=== PATIENT | male | born 1945 | race Caucasian/White ===

== ENCOUNTER → 2021-02-15 | Outpatient (CLI) | payer MEDICARE, BC ==
--- NOTE | 2021-02-16 07:30 | US ---
EXAMINATION TYPE: US thyroid st tissue head/neck DATE OF EXAM: 02/15/2021 COMPARISON: NONE CLINICAL HISTORY: R49.0 HOARSNESS OF VOICE,R13.10 DYSPHAGIA. difficulty swallowing, hoarseness GLAND SIZE: Right Lobe: 3.6 x 1.2 x 1.8 cm Overall Parenchyma: heterogenous Left Lobe: 3.8 x 1.3 x 1.9 cm Overall Parenchyma: heterogeneous Isthmus Thickness: 0.2 cm NODULES RIGHT: # of nodules measured on right: 0 LEFT: # of nodules measured on left: 0 ISTHMUS: # of nodules measured in the isthmus: 0 Bilateral neck scanned, no evidence of lymphadenopathy. IMPRESSION: Nonspecific glandular heterogeneity. No distinct nodularity seen. 2017 ACR TI-RADS LEVEL: *Highest TI-RADS level nodule reported
== END | disposition home or self-care (01) ==
LOC: RADUSWWP 16:45
PROVIDERS: ATTEND Family Medicine
DX: E04.1 Nontoxic single thyroid nodule (principal); R13.10 Dysphagia, unspecified
CPT/HCPCS: 76536

== ENCOUNTER → 2021-08-24 | Outpatient (CLI) | payer MEDICARE, BC | END | disposition home or self-care (01) | LOC: LABPAT 09:43 | PROVIDERS: ATTEND Surgery Plastic and Reconstructive Surgery | DX: Z20.822 Contact with and (suspected) exposure to COVID-19 (principal) | CPT/HCPCS: U0003; C9803; U0005 ==

== ENCOUNTER 2021-08-28 16:37 | Emergency (ER) | payer MEDICARE, BC ==
[2021-08-28 17:18] VITALS: TEMP 97.7
--- NOTE | 2021-08-28 18:08 | ED ---
General Adult HPI - General Chief complaint: Recheck/Abnormal Lab/Rx Stated complaint: jaundice Time Seen by Provider: 08/28/21 17:58 Source: patient, RN notes reviewed Mode of arrival: ambulatory Limitations: no limitations - History of Present Illness Initial comments: This is a pleasant 76-year-old male who comes to the ER complaining of possible jaundice. He states the last 3-4 days she's had some generalized, mild abdominal discomfort which is generalized. He is also had diminished appetite. Patient was complaining of dark urine and then this morning both he and his thought that his skin appeared to be yellow. Patient is due to have a screening colonoscopy tomorrow and call the surgeon was sent to the ER for evaluation. Patient was switched from lovastatin 20 mg to 80 mg of atorvastatin in early July. Patient denying any myalgias. No headache, no fever or chills, no changes in vision or hearing, no sore throat or difficulty with speech, no neck pain, no chest pain or shortness of breath, no abdominal pain, no nausea or vomiting, no changes in urination or bowel movements, no numbness or tingling, no extremity pain, no skin rashes or lesions. - Related Data Home Medications Medication Instructions Recorded Confirmed Atorvastatin [Lipitor] 80 mg PO HS 08/24/21 08/28/21 Enalapril [Vasotec] 10 mg PO DAILY 08/24/21 08/28/21 Fluticasone Nasal [place] [Flonase 1 spray EA NOSTRIL DAILY 08/28/21 08/28/21 Nasal [place]] Multivit-Min/FA/Lycopen/Lutein 1 tab PO DAILY 08/28/21 08/28/21 [Centrum Silver Men Tablet] Allergies Allergy/AdvReac Type Severity Reaction Status Date / Time No Known Allergies Allergy Verified 08/28/21 21:25 Review of Systems ROS Statement: Those systems with pertinent positive or pertinent negative responses have been documented in the HPI. ROS Other: All systems not noted in ROS Statement are negative. General Exam - General Exam Comments Initial Comments: Healthy-appearing 76-year-old male in no distress. Patient does not appear to be ill or toxic. Vital signs are reviewed. Patient may have very mild jaundice. There is no evidence of scleral icterus. Limitations: no limitations General appearance: alert, in no apparent distress Head exam: Present: atraumatic, normocephalic, normal inspection Eye exam: Present: normal appearance, PERRL, EOMI. Absent: scleral icterus, conjunctival injection, periorbital swelling ENT exam: Present: normal exam, mucous membranes moist Neck exam: Present: normal inspection. Absent: tenderness, meningismus, lymphadenopathy Respiratory exam: Present: normal lung sounds bilaterally. Absent: respiratory distress, wheezes, rales, rhonchi, stridor Cardiovascular Exam: Present: regular rate, normal rhythm, normal heart sounds. Absent: systolic murmur, diastolic murmur, rubs, gallop, clicks GI/Abdominal exam: Present: soft, tenderness (Very mild abdominal tenderness across the central abdomen. No distention. Positive bowel sounds. No hepatosplenomegaly. No right upper quadrant tenderness.), normal bowel sounds. Absent: distended, guarding, rebound, rigid Extremities exam: Present: normal inspection, full ROM, normal capillary refill. Absent: tenderness, pedal edema, joint swelling, calf tenderness Back exam: Present: normal inspection Neurological exam: Present: alert, oriented X3, CN II-XII intact Psychiatric exam: Present: normal affect, normal mood Skin exam: Present: warm, dry, intact, normal color. Absent: rash Course Vital Signs 08/28/21 08/28/21 17:14 20:58 Temperature 97.7 F Pulse Rate 61 66 Respiratory 18 16 Rate Blood Pressure 135/81 137/72 O2 Sat by Pulse 97 95 Oximetry - Reevaluation(s) Reevaluation #1: 08/28/21 20:48 Medical record is reviewed Symptoms are essentially unchanged Patient is informed of results and questions answered Patient in no distress Reevaluation #2: 08/28/21 21:33 Medical record is reviewed Symptoms are improved here in the emergency department Patient is informed of results and questions answered Patient in no distress Patient name. Recheck of abdomen is benign. Medical Decision Making - Medical Decision Making Nonspecific and mild abdominal pain, possible mild jaundice, we'll order basic abdominal labs to include creatinine kinase. Reevaluation. The patient's abdominal pain and diminished appetite we will order a computed tomography scan. His workup does show elevation of the hepatocellular enzymes to include alkaline phosphatase with a bilirubin of 4.5. Gallbladder ultrasound was added after cholelithiasis was noted. However there was no duct dilatation noted on computed tomography scan. Patient's findings raises suspicion of possible drug related hepatitis. However patient also has gallstones which raises suspicion of recent common bile duct stone which has now passed. The case was discussed in detail with ED attending physician. Presentation, findings, treatment plan discussed in detail. Case was discussed with the on-call surgeon. He states that the patient can be seen in the office on . Supervising physician is Dr. Dela Cruz - Lab Data Result diagrams: 08/28/21 18:28 08/28/21 18:28 Lab Results 08/28/21 08/28/21 08/28/21 Range/Units 18:28 18:28 18:28 WBC 5.3 (3.8-10.6) k/uL RBC 4.44 (4.30-5.90) m/uL Hgb 15.1 (13.0-17.5) gm/dL Hct 44.9 (39.0-53.0) % MCV 101.3 H (80.0-100.0) fL MCH 34.0 (25.0-35.0) pg MCHC 33.6 (31.0-37.0) g/dL RDW 14.3 (11.5-15.5) % Plt Count 159 (150-450) k/uL MPV 8.3 Neutrophils % 68 % Lymphocytes % 15 % Monocytes % 4 % Eosinophils % 9 % Basophils % 1 % Neutrophils # 3.6 (1.3-7.7) k/uL Lymphocytes # 0.8 L (1.0-4.8) k/uL Monocytes # 0.2 (0-1.0) k/uL Eosinophils # 0.5 (0-0.7) k/uL Basophils # 0.1 (0-0.2) k/uL Macrocytosis Slight PT 11.1 (9.0-12.0) sec INR 1.0 (<1.2) APTT 25.6 (22.0-30.0) sec Sodium 138 (137-145) mmol/L Potassium 4.3 (3.5-5.1) mmol/L Chloride 101 (98-107) mmol/L Carbon Dioxide 24 (22-30) mmol/L Anion Gap 13 mmol/L BUN 12 (9-20) mg/dL Creatinine 0.85 (0.66-1.25) mg/dL Est GFR (CKD-EPI)AfAm >90 (>60 ml/min/1.73 sqM) Est GFR (CKD-EPI)NonAf 86 (>60 ml/min/1.73 sqM) Glucose 105 H (74-99) mg/dL Calcium 9.7 (8.4-10.2) mg/dL Total Bilirubin 4.5 H (0.2-1.3) mg/dL Conjugated Bilirubin 1.8 H (0.0-0.3) mg/dL Unconjugated Bilirubin 1.2 H (0.0-1.1) mg/dL Delta Bilirubin 1.5 H (0.0-0.2) mg/dL GGT 476 H (15-73) U/L AST 197 H (17-59) U/L ALT 284 H (4-49) U/L Alkaline Phosphatase 459 H (38-126) U/L Creatine Kinase 88 (55-170) U/L Total Protein 7.8 (6.3-8.2) g/dL Albumin 4.4 (3.5-5.0) g/dL Lipase 110 (23-300) U/L Urine Color Urine Appearance (Clear) Urine pH (5.0-8.0) Ur Specific [place] (1.001-1.035) Urine Protein (Negative) Urine Glucose (UA) (Negative) Urine Ketones (Negative) Urine Blood (Negative) Urine Nitrite (Negative) Urine Bilirubin (Negative) Urine Urobilinogen (<2.0) mg/dL Ur Leukocyte Esterase (Negative) 08/28/21 Range/Units 18:33 WBC (3.8-10.6) k/uL RBC (4.30-5.90) m/uL Hgb (13.0-17.5) gm/dL Hct (39.0-53.0) % MCV (80.0-100.0) fL MCH (25.0-35.0) pg MCHC (31.0-37.0) g/dL RDW (11.5-15.5) % Plt Count (150-450) k/uL MPV Neutrophils % % Lymphocytes % % Monocytes % % Eosinophils % % Basophils % % Neutrophils # (1.3-7.7) k/uL Lymphocytes # (1.0-4.8) k/uL Monocytes # (0-1.0) k/uL Eosinophils # (0-0.7) k/uL Basophils # (0-0.2) k/uL Macrocytosis PT (9.0-12.0) sec INR (<1.2) APTT (22.0-30.0) sec Sodium (137-145) mmol/L Potassium (3.5-5.1) mmol/L Chloride (98-107) mmol/L Carbon Dioxide (22-30) mmol/L Anion Gap mmol/L BUN (9-20) mg/dL Creatinine (0.66-1.25) mg/dL Est GFR (CKD-EPI)AfAm (>60 ml/min/1.73 sqM) Est GFR (CKD-EPI)NonAf (>60 ml/min/1.73 sqM) Glucose (74-99) mg/dL Calcium (8.4-10.2) mg/dL Total Bilirubin (0.2-1.3) mg/dL Conjugated Bilirubin (0.0-0.3) mg/dL Unconjugated Bilirubin (0.0-1.1) mg/dL Delta Bilirubin (0.0-0.2) mg/dL GGT (15-73) U/L AST (17-59) U/L ALT (4-49) U/L Alkaline Phosphatase (38-126) U/L Creatine Kinase (55-170) U/L Total Protein (6.3-8.2) g/dL Albumin (3.5-5.0) g/dL Lipase (23-300) U/L Urine Color Yellow Urine Appearance Clear (Clear) Urine pH 5.5 (5.0-8.0) Ur Specific [place] 1.009 (1.001-1.035) Urine Protein Negative (Negative) Urine Glucose (UA) Negative (Negative) Urine Ketones Negative (Negative) Urine Blood Negative (Negative) Urine Nitrite Negative (Negative) Urine Bilirubin 1+ H (Negative) Urine Urobilinogen 2.0 (<2.0) mg/dL Ur Leukocyte Esterase Negative (Negative) Disposition Clinical Impression: Hepatitis, Cholelithiasis Disposition: HOME SELF-CARE Condition: Good Instructions (If sedation given, give patient instructions): Jaundice (ED), Gallstones (ED) Additional Instructions: Follow-up with the general surgeon, Dr. Strauss, on as directed. Call at 8 AM in the morning tomorrow morning to set up a follow-up appointment. Make sure you tell the office personnel that I spoke to the surgeon here the ER. Clear liquid/bland diet until follow-up. The atorvastatin. Follow-up with your regular physician as directed. Return to the ER immediately if any symptoms worsen, new symptoms arise, or any other problems develop. Is patient prescribed a controlled substance at d/c from ED?: No Referrals: Ricky Strauss MD [STAFF PHYSICIAN] - 08/30/21 9:00 am Time of Disposition: 21:34
[2021-08-28 18:40] LABS: Basophils # (A) 0.1 k/uL (0-0.2); Basophils % (A) 1 %; Eosinophils # (A) 0.5 k/uL (0-0.7); Eosinophils % (A) 9 %; HCT 44.9 % (39.0-53.0); HGB 15.1 gm/dL (13.0-17.5); Lymphocytes # (A) 0.8 k/uL (1.0-4.8); Lymphocytes % (A) 15 %; MCHC 33.6 g/dL (31.0-37.0); MCV 101.3 fL (80.0-100.0); Macrocytosis Slight; Mean Platelet Volume 8.3; Monocytes # (A) 0.2 k/uL (0-1.0); Monocytes % (A) 4 %; Neutrophils # (A) 3.6 k/uL (1.3-7.7); Neutrophils % (A) 68 %; Platelet Count 159 k/uL (150-450); RBC 4.44 m/uL (4.30-5.90); RDW 14.3 % (11.5-15.5); WBC 5.3 k/uL (3.8-10.6)
[2021-08-28 18:46] LABS: ALT 284 U/L (4-49); AST 197 U/L (17-59); African American GFR (CKD) >90 (>60 ml/min/1.73 sqM); Albumin 4.4 g/dL (3.5-5.0); Alkaline Phosphatase 459 U/L (38-126); Anion Gap 13 mmol/L; Bilirubin, Conjugated 1.8 mg/dL (0.0-0.3); Bilirubin, Delta 1.5 mg/dL (0.0-0.2); Bilirubin,Unconjugated 1.2 mg/dL (0.0-1.1); Blood Urea Nitrogen 12 mg/dL (9-20); Calcium 9.7 mg/dL (8.4-10.2); Carbon Dioxide 24 mmol/L (22-30); Chloride 101 mmol/L (98-107); Creatine Kinase 88 U/L (55-170); GGT 476 U/L (15-73); Glucose 105 mg/dL (74-99); Lipase 110 U/L (23-300); Non-African American GFR(CKD) 86 (>60 ml/min/1.73 sqM); Sodium 138 mmol/L (137-145); Total Bilirubin 4.5 mg/dL (0.2-1.3); Total Protein 7.8 g/dL (6.3-8.2)
[2021-08-28 18:48] LABS: Partial Thromboplastin Time 25.6 sec (22.0-30.0); Prothrombin Time 11.1 sec (9.0-12.0)
[2021-08-28 18:49] LABS: Potassium 4.3 mmol/L (3.5-5.1)
[2021-08-28 19:18] LABS: Appearance,Urine Clear (Clear); Bilirubin,Urine 1+ (Negative); Blood,Urine Negative (Negative); Color,Urine Yellow; Glucose,Urine (UA) Negative (Negative); Ketones,Urine Negative (Negative); Leukocyte Esterase,Urine Negative (Negative); Nitrite,Urine Negative (Negative); PH, Urine 5.5 (5.0-8.0); Protein,Urine Negative (Negative); Specific Gravity,Urine 1.009 (1.001-1.035)
--- NOTE | 2021-08-28 19:35 | CT ---
EXAMINATION TYPE: CT abdomen pelvis w con CT DLP: 556.6 mGycm, Automated exposure control for dose reduction was used. DATE OF EXAM: 08/28/2021 7:23 PM COMPARISON: None.. CT abdomen pelvis most recent from . CLINICAL INDICATION:Male, 76 years old with history of Abdominal pain; Abdominal pain and jaundice. TECHNIQUE: Standard CT of the abdomen and pelvis following the administration of 100 cc of Isovue 3 00 IV contrast material. Coronal and sagittal reformats were performed. FINDINGS: LOWER CHEST: Unremarkable ABDOMEN LIVER: No evidence of cirrhosis. There is suggestion of a steatosis with low attenuation relative the spleen. GALLBLADDER AND BILE DUCTS: Layering increased densities within the lumen consistent with gallstones are present. No biliary ductal dilatation identified. PANCREAS: Lipomatous pseudohypertrophy changes. SPLEEN: Unremarkable. ADRENAL GLANDS: Unremarkable. KIDNEYS AND URETERS: No evidence of hydronephrosis or renal calculus. The ureters are unremarkable. Right 10 mm renal cyst. PELVIS BLADDER: Unremarkable REPRODUCTIVE: Unremarkable. ABDOMEN & PELVIS STOMACH AND BOWEL: No evidence of bowel obstruction. Few scattered clonic diverticula are present. PERITONEUM: No evidence of pneumoperitoneum or free fluid. VASCULATURE: Infrarenal aortic aneurysm measuring up to 38 mm with no thrombus. MUSCULOSKELETAL: No acute osseous abnormalities LYMPH NODES: No gross evidence for lymphadenopathy. SOFT TISSUE/ABDOMINAL WALL: Unremarkable IMPRESSION: 1. Infrarenal aortic saccular aneurysm measuring up to 38 mm at the aortic bifurcation. 2. Cholelithiasis. 3. Colonic diverticulosis. 4. Hepatic steatosis.
[2021-08-28 20:59] VITALS: RESP 16
--- NOTE | 2021-08-28 21:14 | US ---
EXAMINATION TYPE: US gallbladder DATE OF EXAM: 08/28/2021 COMPARISON: CT 08/28/21 CLINICAL HISTORY: Abdominal pain. Abdominal pain, elevated liver enzymes. Patient states noticing jau ndice EXAM MEASUREMENTS: Liver Length: 17.9 cm Gallbladder Wall: 0.40 cm CBD: 0.57 cm Right Kidney: 10.9 x 5.6 x 4.8 cm Pancreas: Obscured by bowel gas Liver: Diffusely heterogenous parenchyma Gallbladder: Thickened gallbladder wall with echogenic focus Evidence for sonographic Jacome's sign: No CBD: wnl Right Kidney: No hydronephrosis or masses seen IMPRESSION: 1. Hepatocellular disease most commonly relating to hepatic steatosis with geographic fatty sparing. 2. Cholelithiasis.
[2021-08-28 22:19] VITALS: BP 140/86; PULSE 68
[2021-08-29 08:29] LABS: Hepatitis A Antibody IgM Nonreactive (Nonreactive); Hepatitis B Core IgM Nonreactive (Nonreactive); Hepatitis B Surface Antigen Nonreactive (Nonreactive); Hepatitis C IgG Antibody Nonreactive (Nonreactive)
== END 2021-08-28 22:19 | disposition home or self-care (01) ==
LOC: EC 16:37
DX: K75.9 Inflammatory liver disease, unspecified (principal); K80.20 Calculus of gallbladder without cholecystitis without obstruction; Z79.899 Other long term (current) drug therapy
CPT/HCPCS: 36415; 80048; 80076; 80074; 82550; 82977; 83690; 85025; 85610; 85730; 81003; 76705; 74177; 99284; Q9967

== ENCOUNTER 2021-09-11 09:42 | Day surgery (SDC) | payer MEDICARE, BC ==
[2021-09-07 10:26] VITALS: BMI 26.6
[~2021-09-11 09:42] MED LIST: ACETAMINOPHEN TAB 500 MG TAB PO PRN; DEXAMETHASONE SOD PHOSPHATE 4 MG/ML 1 ML VIAL IV ONE; HEPARIN SODIUM,PORCINE/PF 5,000 UNIT/0.5 ML SYRINGE SQ PRN; LACTATED RINGERS 1,000 ML IV SCH; LIDOCAINE 1% (10MG/ML) FOR IV START INTRADERMA PRN; MIDAZOLAM 2 MG/2 ML VIAL IV PRN; ONDANSETRON 4 MG/2 ML VIAL IVP ONE
--- NOTE | 2021-09-11 12:20 | P.GSHP ---
History of Present Illness H&P Date: 09/11/21 Chief Complaint: Right upper quadrant pain This is a 76-year-old male presents today for laparoscopic cholestatic. Patient's echo is recommended quadrant pain. He started have cholelithiasis. Past Medical History Past Medical History: Hyperlipidemia, Hypertension History of Any Multi-Drug Resistant Organisms: None Reported Past Surgical History: Tonsillectomy Past Anesthesia/Blood Transfusion Reactions: No Reported Reaction Past Psychological History: No Psychological Hx Reported Smoking Status: Former smoker Past Alcohol Use History: Occasional Past Drug Use History: None Reported - Past Family History Mother Family Medical History: No Reported History Medications and Allergies Home Medications Medication Instructions Recorded Confirmed Type Enalapril [Vasotec] 10 mg PO DAILY 08/24/21 09/11/21 History Lovastatin [Mevacor] 40 mg PO DAILY 09/07/21 09/11/21 History Allergies Allergy/AdvReac Type Severity Reaction Status Date / Time No Known Allergies Allergy Verified 09/11/21 10:40 Surgical - Exam Vital Signs Temp Pulse Resp BP Pulse Ox 97.4 F L 60 16 151/67 96 09/11/21 10:43 09/11/21 10:43 09/11/21 10:43 09/11/21 10:43 09/11/21 10:43 - General well developed, well nourished, no distress - Eyes PERRL - ENT normal pinna - Neck no masses Assessment and Plan Assessment: Right upper quadrant pain. Cholelithiasis We'll perform laparoscopic cholecystectomy
[2021-09-11] MEDS ORDERED: ROCURONIUM 10 MG/ML (5 ML VIAL) IV ONE (12:32)
[2021-09-11] MEDS ORDERED: LIDOCAINE 1% INJ 10MG/ML (20 ML MDV) ONE (12:32)
[2021-09-11] MEDS ORDERED: SUCCINYLCHOLINE CHLORIDE 100 MG/5 ML SYR IV ONE (12:32)
[2021-09-11] MEDS ORDERED: PROPOFOL 10 MG/ML 20 ML VIAL IV ONE (12:32)
[2021-09-11] MEDS ORDERED: MIDAZOLAM 2 MG/2 ML VIAL ONE (12:32)
[2021-09-11] MEDS ORDERED: fentaNYL (PF) 50 MCG/ML 2 ML AMP ONE (12:32)
[2021-09-11] MEDS ORDERED: NEOSTIGMINE 1 MG/ML 10 ML VIAL ONE (12:32)
[2021-09-11] MEDS ORDERED: GLYCOPYRROLATE 0.2 MG/ML 2 ML VIAL ONE (12:32)
[2021-09-11] MEDS ORDERED: HYDROmorphone (PF) 1 MG/ML ONE (12:32)
[2021-09-11] MEDS ORDERED: BUPIVACAIN-EPI 0.25%-1:200,000 30 ML VIAL SQ ONE (12:55)
--- NOTE | 2021-09-11 13:12 | P.OP ---
Date of Procedure: 09/11/21 Preoperative Diagnosis: Cholelithiasis Postoperative Diagnosis: Cholelithiasis Procedure(s) Performed: Laparoscopic cholecystectomy Anesthesia: MADDY Surgeon: Ricky Strauss Estimated Blood Loss (ml): 5 Pathology: other (Gallbladder) Condition: stable Disposition: PACU Description of Procedure: The patient was placed on the operating table. The patient received a general endotracheal tube anesthesia. The patients abdomen was prepped and draped in the usual sterile fashion. Through an infraumbilical stab incision, the fascia of the anterior abdominal wall was grasped with a pair of Kochers and then the Veress needle was placed in the peritoneal cavity. Position of the Veress needle was confirmed with positive drop test. The abdomen was then insufflated. After adequate insufflation, the 10 mm trocar was placed in the peritoneal cavity. Following this the laparoscope was placed in the peritoneal cavity. The patient was placed in the head-up, right side up position and then a 5 mm trocar was placed in the right lateral and right subcostal position under direct visualization. A 8 mm trocar was placed in the epigastric position. The gallbladder was grasped in the fundus and infundibulum. Traction on the gallbladder was placed in the lateral and the cephalad positions. The triangle of Calot was visualized.. The cystic duct was bluntly dissected until the union of the cystic duct and common bile duct was seen. A critical view of safety was achieved. The cystic duct was then divided and sealed with the Harmonic scissors. A PDS Endoloop was then placed throughout the cystic duct stump. The cystic artery divided and sealed with the Harmonic scissors. The gallbladder was then removed from the liver bed using Harmonic scissors. The gallbladder was then extracted through the epigastric port site. Operative field was checked for any bleeding spots and Harmonic scissors was used to coagulate the liver bed. The abdomen was irrigated. The trocars were removed. The skin was closed using interrupted 3-0 Vicryl suture. Dermabond dressing were applied. The patient tolerated the procedure well.
[2021-09-11 13:27] VITALS: TEMP 97.2
[2021-09-11] MEDS: HYDROmorphone 0.5 MG/0.5 ML SYRINGE IVP PRN ×2 (13:32→13:55)
[2021-09-11] MEDS ORDERED: LACTATED RINGERS 1,000 ML IV ONE ×2 (13:58)
[2021-09-11 14:34] VITALS: RESP 18
[2021-09-11 14:57] VITALS: BP 126/73; PULSE 67
[2021-09-11] MEDS ORDERED: IBUPROFEN 200 MG TAB PO ONE (15:02)
== END 2021-09-11 15:38 | disposition home or self-care (01) ==
LOC: OR 09:42
PROVIDERS: ATTEND Surgery
DX: K80.20 Calculus of gallbladder without cholecystitis without obstruction (principal); K81.1 Chronic cholecystitis; E78.5 Hyperlipidemia, unspecified; I10 Essential (primary) hypertension; Z87.891 Personal history of nicotine dependence; Z98.890 Other specified postprocedural states; Z79.899 Other long term (current) drug therapy
CPT/HCPCS: 88304; 47562; J2250; J1100; J2710; J0690; J2405; J2001; J3010; J1170 ×2; J0330; J2704; J1644

== ENCOUNTER → 2021-12-31 | Outpatient (CLI) | payer MEDICARE, BC ==
[2021-12-31 22:29] LABS: African American GFR (CKD) 83.5 (60.0-200.0); Anion Gap 12.4 mmol/L (10.00-18.00); Blood Urea Nitrogen 15.6 mg/dL (9.0-27.0); Carbon Dioxide 25.5 mmol/L (20.0-27.5); Non-African American GFR(CKD) 72.1 (60.0-200.0); Potassium 4.5 mmol/L (3.5-5.5)
[2021-12-31 22:39] LABS: HCT 42.7 % (39.6-50.0); HGB 14.1 g/dL (13.0-17.0); MCH 32.3 pg (27.0-32.0); MCV 97.7 fL (80.0-97.0); Mean Platelet Volume 11.4 fL (9.5-12.2); NRBC Per 100 WBC 0 /100 WBCS (0.0-0.0); Platelet Count 192 X 10*3/uL (140-440); RBC 4.37 X 10*6/uL (4.40-5.60); RDW 13.7 % (11.5-14.5); WBC 6.46 X 10*3/uL (4.50-10.00)
== END | disposition home or self-care (01) ==
LOC: LABWHC1 14:08
PROVIDERS: ATTEND Internal Medicine Cardiovascular Disease
DX: I10 Essential (primary) hypertension (principal)
CPT/HCPCS: 36415; 80051; 82565; 84520; 85027

== ENCOUNTER 2022-01-02 07:52 | Day surgery (SDC) | payer MEDICARE, BC ==
[2022-01-01 13:00] VITALS: BMI 27.4
[~2022-01-02 07:52] MED LIST changes: -ACETAMINOPHEN TAB 500 MG TAB PO PRN; +ALPRAZolam 0.25 MG TAB PO PRN; +ALPRAZolam 0.5 MG TAB PO PRN; +ASPIRIN 325 MG TAB PO STA; +ATORVASTATIN 80 MG TAB PO STA; -DEXAMETHASONE SOD PHOSPHATE 4 MG/ML 1 ML VIAL IV ONE; -HEPARIN SODIUM,PORCINE/PF 5,000 UNIT/0.5 ML SYRINGE SQ PRN; -LACTATED RINGERS 1,000 ML IV SCH; -LIDOCAINE 1% (10MG/ML) FOR IV START INTRADERMA PRN; -MIDAZOLAM 2 MG/2 ML VIAL IV PRN; +NITROGLYCERIN SL TABS 0.4 MG TAB SUBLINGUAL PRN; -ONDANSETRON 4 MG/2 ML VIAL IVP ONE; +SODIUM CHLORIDE 0.9% 1,000 ML in EMPTY BAG 1 BAG IV SCH
[2022-01-02 08:26] VITALS: TEMP 97.1
[2022-01-02] MEDS ORDERED: MIDAZOLAM 2 MG/2 ML VIAL IV ONE (09:06)
[2022-01-02] MEDS: fentaNYL (PF) 50 MCG/ML 2 ML AMP IV ONE ×2 (09:06→09:23)
[2022-01-02] MEDS ORDERED: LIDOCAINE 1% INJ 10MG/ML (5 ML VIAL-PF) SQ ONE (09:08)
[2022-01-02] MEDS ORDERED: VERAPAMIL SYRINGE (5 MG/10 ML) INTRAARTER ONE (09:11)
[2022-01-02] MEDS ORDERED: HEPARIN SODIUM 1,000 UN/ML (10ML VL) IV ONE (09:14)
[2022-01-02] MEDS ORDERED: IOPAMIDOL-370 125ML BTL INJ ONE (10:23)
[2022-01-02] MEDS ORDERED: CLOPIDOGREL 75 MG TAB PO ONE ×2 (10:36→10:40)
[2022-01-02] MEDS ORDERED: IOPAMIDOL-370 100ML BTL INJ ONE ×3 (10:36→10:40)
[2022-01-02] MEDS ORDERED: SODIUM CHLORIDE 0.9% 1,000 ML IV SCH (10:45)
[2022-01-02] MEDS ORDERED: FLUTICASONE 50MCG/SPRAY NASAL 16GM EA NOSTRIL PRN (10:47)
[2022-01-02] MEDS ORDERED: ACETAMINOPHEN TAB 325 MG TAB PO SCH (12:00)
[2022-01-02] MEDS ORDERED: METOPROLOL TARTRATE 12.5 MG TAB PO SCH (12:00)
--- NOTE | 2022-01-02 12:15 | CC ---
CARDIAC CATHETERIZATION REPORT REFERRING PHYSICIAN: Dr. Bo. INDICATION: Abnormal stress test. HISTORY OF PRESENT ILLNESS: This is a 76-year-old gentleman with history of dyslipidemia, hypertension, and abdominal aortic aneurysm, who presented to us for preop cardiac evaluation and underwent a Lexiscan that showed moderate to large area of ischemia involving the apex due to which I advised him to undergo cardiac catheterization. PROCEDURE NOTE: After obtaining informed consent, left heart catheterization and coronary angiogram were performed via the right radial artery using 3 and half right and left Michel catheters. Hemodynamics were obtained using the right Michel catheter. The patient tolerated the procedure well without any obvious immediate complications. He received moderate conscious sedation. Total sedation time was 18 minutes. FINDINGS: HEMODYNAMICS: Left ventricular end-diastolic pressure is 18 mm. There is no significant gradient across the aortic valve. LEFT VENTRICULOGRAM: Not performed. ANGIOGRAPHIC DATA: RIGHT CORONARY ARTERY: Right coronary artery is a large dominant vessel and is free of significant stenosis. LEFT MAIN CORONARY ARTERY is a normal-sized vessel and is free of disease, divides into left anterior descending coronary artery and circumflex coronary artery. CIRCUMFLEX CORONARY ARTERY and its branches are free of significant stenosis. LEFT ANTERIOR DESCENDING CORONARY ARTERY: Mid LAD shows a focal 90% stenosis. Right radial artery access was obtained using a micropuncture needle. Catheter and device were manipulated into the ascending aorta under fluoroscopic guidance . The patient received 5 mg of verapamil and 5000 units of intravenous heparin per protocol. CONCLUSIONS: Severe one vessel coronary artery disease with stress test abnormality that corresponds with it. PLAN: We will review angiographic data with Dr. Cammie Wilkins, the on-call package sorter, and will proceed with angioplasty of the LAD. The patient was to undergo knee replacement, but he will hold off on this until the next three months. MMODL / IJN: [id number] /
--- NOTE | 2022-01-02 12:40 | P.CARDCATH ---
Description of Procedure: Date of Service 01/02/2022 Indication for proceedure unstable angina with abnormal stress test Procedure PTCA and stenting of mid left anterior descending coronary artery with a drug-eluting stent Moderate conscious sedation time was 41 minutes. Patient was administered Versed. Oxygen saturation hemodynamics and EKG were monitored closely Performed by: Dr. Vaishali Wilkins Clinical Information [this is a patient of Dr. Peralta who was brought in electively for abnormal stress test prior to elective a orthopedic surgery. He had abnormal stress test with anterior wall reversible defect and cardiac catheter revealed a 95% mid LAD lesion of the small diagonal and septal branch. Mid LAD had a 40-50% narrowing as well and no other significant disease was noted. PTCA was performed in the same setting from the right radial approach Equipment used I used a 3.5 left Michel guide catheter of 6-Armenian caliber, and run through wire was used to cross the lesion. A 3.0 caliber 12 mm NC tech balloon was used to predilate the lesion area and 18 mm long 3.5 caliber Xience stent was used and deployed with excellent angiographic result. Patient received intravenous heparin and ACT was 258. He also received 600 mg of Plavix. He will be on aspirin and Plavix without interruption for minimal 6 months prior to his orthopedic surgery. Results are discussed with the patient and family. I expect he'll be discharged later on today. Remains stable Description using a 3.5 left Michel guide catheter a calendar to the left kenisha nary artery. In the anterolateral used to cross the lesion and it was somewhat difficult because of tortuosity of the LAD. Predilatation was performed with a 3.0 caliber 12 mm NC tech balloon and a 18 mm long 3.5 caliber drug-eluting stent was deployed. Patient received 600 mg as a Plavix. The sheath was taken out and TR band apart as per protocol with saturation of fingers of the right hand of 94%. Procedure was performed uneventfully with excellent result. Details are discussed with the patient and his and I expect he'll be discharged later on today and see Dr. Peralta in one week Result excellent result without complication was achieved. Mid LAD was stented with a 18 mm long 3.5 caliber drug-eluting stent. Excellent result of dictation details discussed the patient and . Expect to be discharged later on today
[2022-01-02 14:19] VITALS: RESP 16
[2022-01-02 15:32] VITALS: BP 122/64; PULSE 62
[2022-01-02] MEDS ORDERED: ATORVASTATIN 80 MG TAB PO SCH (21:00)
[2022-01-03] MEDS ORDERED: HEPARIN SODIUM,PORCINE 2,500 UNIT in SODIUM CHLORIDE 0.9% 250 ML IRRIGATION PRN (07:00)
[2022-01-03] MEDS ORDERED: HEPARIN SODIUM,PORCINE 10,000 UNIT in SODIUM CHLORIDE 0.9% 1,000 ML IRRIGATION PRN (07:00)
[2022-01-03] MEDS ORDERED: lisinopriL 20 MG TAB PO SCH (09:00)
[2022-01-03] MEDS ORDERED: ASPIRIN 81 MG PO SCH (09:00)
[2022-01-03] MEDS ORDERED: ISOSORBIDE MONONITRATE ER 30 MG TAB.ER.24H PO SCH (09:00)
[2022-01-03] MEDS ORDERED: CLOPIDOGREL 75 MG TAB PO SCH (09:00)
[2022-01-03] MEDS ORDERED: MULTIVITAMINS, THERA 1 EACH TAB PO SCH (09:00)
== END 2022-01-02 16:26 | disposition home or self-care (01) ==
LOC: CATHCVL 07:52
PROVIDERS: ATTEND Internal Medicine Cardiovascular Disease
DX: I25.110 Atherosclerotic heart disease of native coronary artery with unstable angina pectoris (principal); I10 Essential (primary) hypertension; E78.5 Hyperlipidemia, unspecified; I71.4 Abdominal aortic aneurysm, without rupture; Z79.899 Other long term (current) drug therapy; Z87.891 Personal history of nicotine dependence; Z79.82 Long term (current) use of aspirin; Z79.02 Long term (current) use of antithrombotics/antiplatelets; Z80.1 Family history of malignant neoplasm of trachea, bronchus and lung
CPT/HCPCS: 93458; C9600; C1887; C1769 ×2; C1894; C1725; C1874; J2250; J2001; J3010; J1644; Q9967 ×2

== ENCOUNTER → 2023-05-07 | Outpatient (CLI) | payer MEDICARE, BC ==
[2023-05-07 17:37] LABS: ALT 32 U/L (10-49); AST 36 U/L (14-35); Chol/HDL Ratio 2.84 Ratio; LDL Cholesterol,Calculated 60.6 mg/dL (0.0-131.0)
== END | disposition home or self-care (01) ==
LOC: LABWHC1 08:53
PROVIDERS: ATTEND Internal Medicine Cardiovascular Disease
DX: E78.2 Mixed hyperlipidemia (principal)
CPT/HCPCS: 36415; 80061; 84450; 84460

== ENCOUNTER 2023-07-09 07:57 | Day surgery (SDC) | payer MEDICARE, BC ==
[2023-07-03 16:00] VITALS: BMI 26.2
[~2023-07-09 07:57] MED LIST changes: -ALPRAZolam 0.25 MG TAB PO PRN; -ALPRAZolam 0.5 MG TAB PO PRN; -ASPIRIN 325 MG TAB PO STA; -ATORVASTATIN 80 MG TAB PO STA; +HYDROmorphone 0.5 MG/0.5 ML SYRINGE IVP PRN; -NITROGLYCERIN SL TABS 0.4 MG TAB SUBLINGUAL PRN; -SODIUM CHLORIDE 0.9% 1,000 ML in EMPTY BAG 1 BAG IV SCH
[2023-07-09] MEDS: LACTATED RINGERS 1,000 ML IV SCH ×2 (08:13→08:48)
--- NOTE | 2023-07-09 08:48 | P.GSHP ---
History of Present Illness H&P Date: 07/09/23 CHIEF COMPLAINT: Colon screen HISTORY OF PRESENT ILLNESS: The patient is a 77-year-old male who presents for colon screen. Lower endoscopy was offered for further evaluation and management. PAST MEDICAL HISTORY: Please see list. PAST SURGICAL HISTORY: Please see list. MEDICATIONS: Please see list. ALLERGIES: Please see list. SOCIAL HISTORY: No illicit drug use FAMILY HISTORY: No reports of Crohn disease or ulcerative colitis. REVIEW OF ORGAN SYSTEMS: CONSTITUTIONAL: No reports of fevers or chills. PHYSICAL EXAM: VITAL SIGNS: Stable GENERAL: Well-developed pleasant in no acute distress. HEENT: No scleral icterus. Extraocular movements grossly intact. Moist buccal mucosa. NECK: Supple without lymphadenopathy. CHEST: Unlabored respirations. Equal bilateral excursions. CARDIOVASCULAR: Regular rate and rhythm. Distal 2+ pulses. ABDOMEN: Soft, nontender, nondistended. MUSCULOSKELETAL: No clubbing, cyanosis, or edema. ASSESSMENT: 1. Colon screen. PLAN: 1. Recommend proceeding with a lower endoscopy Past Medical History Past Medical History: Coronary Artery Disease (CAD), Hyperlipidemia, Hypertension Additional Past Medical History / Comment(s): POSTIVE STRESS TEST 12/28/21 History of Any Multi-Drug Resistant Organisms: None Reported Past Surgical History: Cholecystectomy, Heart Catheterization With Stent, Orthopedic Surgery Additional Past Surgical History / Comment(s): COLONOSCOPY,LT total KNEE SX, cardiac stent x1 Past Anesthesia/Blood Transfusion Reactions: Postoperative Nausea & Vomiting (PONV) Additional Past Anesthesia/Blood Transfusion Reaction / Comment(s): no hx blood transfusion Date of Last Stent Placement:: Smoking Status: Former smoker - Past Family History Mother Family Medical History: No Reported History Medications and Allergies Home Medications Medication Instructions Recorded Confirmed Type Acetaminophen Tab [Tylenol] 650 mg PO Q6H #30 tab 09/11/21 07/09/23 Rx Aspirin [Adult Low Dose Aspirin EC] 81 mg PO DAILY 01/01/22 07/09/23 History Atorvastatin [Lipitor] 80 mg PO QAM 01/01/22 07/09/23 History Fluticasone Nasal [place] [Flonase 2 spray EA NOSTRIL DAILY PRN 01/01/22 07/09/23 History Nasal [place]] Multivit-Min/Folic/Vit K/Lycop 1 each PO DAILY 01/01/22 07/09/23 History [Men's Multivitamin Tablet] lisinopriL [Prinivil] 10 mg PO QAM 07/03/23 07/09/23 History Allergies Allergy/AdvReac Type Severity Reaction Status Date / Time latex Allergy PER Verified 07/09/23 08:14 ALLERGY TESTING Surgical - Exam Vital Signs Temp Pulse Resp BP Pulse Ox 97.1 F L 59 L 16 160/75 96 07/09/23 08:18 07/09/23 08:18 07/09/23 08:18 07/09/23 08:18 07/09/23 08:18
[2023-07-09] MEDS ORDERED: LIDOCAINE 1% INJ 10MG/ML (20 ML MDV) ONE (08:51)
[2023-07-09] MEDS ORDERED: PROPOFOL 10 MG/ML 20 ML VIAL IV ONE (08:51)
[2023-07-09 08:55] VITALS: TEMP 97.1
--- NOTE | 2023-07-09 09:33 | P.PCN ---
Date of Procedure: 07/09/23 Description of Procedure: PREOPERATIVE DIAGNOSIS: Personal history of colon polyp Colonoscopy screening. POSTOPERATIVE DIAGNOSIS: Sigmoid diverticulosis with partial bowel obstruction OPERATION: Colonoscopy to the ileocecal valve SURGEON: Ninfa Patel MD. ANESTHESIA: MAC. INDICATIONS: The patient is a 77-year-old male who presents for colonoscopy screening. Last colonoscopy 5 years Benefits and risks were described and informed consent was obtained. DESCRIPTION OF PROCEDURE: The patient had undergone a GoLYTELY prep. The patient had been brought into the operating room and laid in the left lateral decubitus position. After adequate intravenous sedation, the rectum was examined with 2% lidocaine jelly. Prostate was unremarkable No external hemorrhoids were encountered. The rectal tone was within normal limits. No lesions were palpated in the rectal vault. An Olympus colonoscope was advanced with resistance at sigmoid colon due to stricture. Scope was exchanged for a pediatric colonoscope until the ileocecal valve was captured. The prep was fair. Scattered diverticulosis was e ncountered. No colonic polyps were found. No evidence of focal colitis was found. Retroflexion of the scope demonstrated grade 3 internal hemorrhoids without active bleeding or inflammation. The colon was desufflated. The patient had tolerated the procedure well. Withdrawal time was over 6 minutes. FINDINGS: Aronchick preparation quality scale 3 (1-5) Internal hemorrhoids, grade 3 External prolapsed hemorrhoids, grade 3 Unable to determine arteriovenous malformations. 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 RECOMMENDATIONS: Lower endoscopy in 5 years2027 May benefit from partial colon resection due to stricture Plan - Discharge Summary Discharge Rx Participant: Yes New Discharge Prescriptions: Continue Aspirin [Adult Low Dose Aspirin EC] 81 mg PO DAILY lisinopriL [Prinivil] 10 mg PO QAM Acetaminophen Tab [Tylenol] 650 mg PO Q6H #30 tab Fluticasone Nasal [place] [Flonase Nasal [place]] 2 spray EA NOSTRIL DAILY PRN PRN Reason: ALLERGIES Atorvastatin [Lipitor] 80 mg PO QAM Multivit-Min/Folic/Vit K/Lycop [Men's Multivitamin Tablet] 1 each PO DAILY Discharge Medication List Acetaminophen Tab [Tylenol] 650 mg PO Q6H #30 tab 09/11/21 [Rx] Aspirin [Adult Low Dose Aspirin EC] 81 mg PO DAILY 01/01/22 [History] Atorvastatin [Lipitor] 80 mg PO QAM 01/01/22 [History] Fluticasone Nasal [place] [Flonase Nasal [place]] 2 spray EA NOSTRIL DAILY PRN 01/01/22 [History] Multivit-Min/Folic/Vit K/Lycop [Men's Multivitamin Tablet] 1 each PO DAILY 01/01/22 [History] lisinopriL [Prinivil] 10 mg PO QAM 07/03/23 [History] Follow up Appointment(s)/Referral(s): Ninfa Patel MD [STAFF PHYSICIAN] - 07/22/23 1:15 pm Patient Instructions/Handouts: Diverticulosis Diet (GEN), Diverticulosis (GEN) Activity/Diet/Wound Care/Special Instructions: Colonoscopy in 5 years, 2027 Discharge Disposition: HOME SELF-CARE
[2023-07-09 09:51] VITALS: BP 146/77; PULSE 56; RESP 18
== END 2023-07-09 10:20 | disposition home or self-care (01) ==
LOC: ORWHC2ENDO 07:57
PROVIDERS: ATTEND Surgery Plastic and Reconstructive Surgery
DX: Z12.11 Encounter for screening for malignant neoplasm of colon (principal); K57.30 Diverticulosis of large intestine without perforation or abscess without bleeding; I10 Essential (primary) hypertension; I25.10 Atherosclerotic heart disease of native coronary artery without angina pectoris; E78.5 Hyperlipidemia, unspecified; Z90.49 Acquired absence of other specified parts of digestive tract; Z95.5 Presence of coronary angioplasty implant and graft; Z86.010 Personal history of colon polyps; Z87.891 Personal history of nicotine dependence; Z79.82 Long term (current) use of aspirin; Z79.899 Other long term (current) drug therapy; Z91.040 Latex allergy status
CPT/HCPCS: G0105; J2001; J2704; 45378

== ENCOUNTER → 2023-09-15 | Outpatient (CLI) | payer MEDICARE, BC ==
[2023-09-15 15:54] LABS: Basophils # (A) 0.03 X 10*3/uL (0.00-0.10); Basophils % (A) 0.5 %; Eosinophils # (A) 0.13 X 10*3/uL (0.04-0.35); Eosinophils % (A) 2.3 %; HCT 47.4 % (39.6-50.0); HGB 16.2 g/dL (13.0-17.0); Lymphocytes # (A) 1.84 X 10*3/uL (0.90-5.00); Lymphocytes % (A) 33.2 %; MCH 31.9 pg (27.0-32.0); MCHC 34.2 g/dL (32.0-37.0); MCV 93.3 FL (80.0-97.0); Mean Platelet Volume 11.3 FL (9.5-12.2); Monocytes # (A) 0.54 X 10*3/uL (0.20-1.00); Monocytes % (A) 9.7 %; NRBC Per 100 WBC 0 X 10*3/uL (0.00-0.01); Neutrophils % (A) 54.1 %; Platelet Count 237 X 10*3/uL (140-440); RBC 5.08 X 10*6/uL (4.40-5.60); RDW 14.1 % (11.5-14.5); WBC 5.55 X 10*3/uL (4.50-10.00)
[2023-09-15 16:00] LABS: ALT 48 U/L (10-49); AST 65 U/L (14-35); Albumin 5.1 g/dL (3.8-4.9); Alkaline Phosphatase 82 U/L (41-126); BUN/Creat Ratio 28.55 Ratio (12.00-20.00); Blood Urea Nitrogen 31.4 mg/dL (9.0-27.0); Calcium 10.7 mg/dL (8.7-10.3); Carbon Dioxide 23.4 mmol/L (21.6-31.8); Chloride 95 mmol/L (96-109); Glucose 110 mg/dL (70-110); Potassium 5.1 mmol/L (3.5-5.5); Sodium 131 mmol/L (135-145); Total Bilirubin 0.8 mg/dL (0.3-1.2); Total Protein 8.1 g/dL (6.2-8.2)
== END | disposition home or self-care (01) ==
LOC: LABWHC1 08:29
PROVIDERS: ATTEND Surgery Plastic and Reconstructive Surgery
DX: K57.30 Diverticulosis of large intestine without perforation or abscess without bleeding (principal)
CPT/HCPCS: 36415; 80053; 85025; 86850; 86900; 86901

== ENCOUNTER → 2024-12-08 | Outpatient (CLI) | payer MEDICARE, BC ==
[2024-12-09 02:20] LABS: BUN/Creat Ratio 11.45 Ratio (12.00-20.00); Blood Urea Nitrogen 12.6 mg/dL (9.0-27.0); Calcium 9.6 mg/dL (8.7-10.3); Carbon Dioxide 24.3 mmol/L (21.6-31.8); Chloride 103 mmol/L (96-109); Glucose 107 mg/dL (70-110); Magnesium 2.1 mg/dL (1.5-2.4); Potassium 4.2 mmol/L (3.5-5.5); Sodium 139 mmol/L (135-145)
== END | disposition home or self-care (01) ==
LOC: LABWHC1 16:19
PROVIDERS: ATTEND Internal Medicine Cardiovascular Disease
DX: I49.8 Other specified cardiac arrhythmias (principal)
CPT/HCPCS: 36415; 80048; 83735; 84443